=== PATIENT | male | born 1990 ===

== ENCOUNTER 2020-11-26 16:52 | Emergency (ER) | payer OTHER ==
[~2020-11-26] VITALS: Ht 182.9 cm; Wt 71.2 kg
[2020-11-26] MEDS ORDERED: ACETAMINOPHEN 500 MG TABLET ONE (17:07)
[2020-11-26] MEDS ORDERED: SODIUM CHLORIDE 0.9% 1,000ML IVBOLUS ONE (18:00)
[2020-11-26] MEDS ORDERED: ACETAMINOPHEN 500 MG TABLET PO ONE (18:00)
[2020-11-26] MEDS ORDERED: SODIUM CHLORIDE FLUSH 10ML SYR IVF ONE (18:00)
[2020-11-26 18:22] LABS: BASOPHILS % (AUTO) 0 % (0-1); EOSINOPHILS % (AUTO) 0 % (1-7); LYMPHOCYTES % (AUTO) 21 % (22-44); MEAN CORPUSCULAR HEMOGLOBIN 27.4 pg (27.5-34.5); MEAN CORPUSCULAR HGB CONC 33.4 g/dL (33.2-36.2); MEAN PLATELET VOLUME 7.2 fL (7.4-10.4); MONOCYTES % (AUTO) 11 % (2-9); NEUTROPHILS % (AUTO) 68 % (42-75); PLATELET COUNT 277 x10^3/uL (130-400); RED BLOOD COUNT 4.93 x10^6/uL (4.38-5.82); RED CELL DISTRIBUTION WIDTH 14.1 % (9.4-14.8)
[2020-11-26 18:31] LABS: ALBUMIN 2.5 g/dL (3.4-5.0); ANION GAP 5 mmol/L (5-15); CALCIUM 8.2 mg/dL (8.5-10.1); CHLORIDE 102 mmol/L (98-107)
[2020-11-26 18:34] LABS: ALANINE AMINOTRANSFERASE 33 U/L (12-78); ALKALINE PHOSPHATASE 64 U/L (45-117); BILIRUBIN,TOTAL 0.3 mg/dL (0.2-1.0); CREATININE 0.59 mg/dL (0.7-1.3); TOTAL PROTEIN 6.7 g/dL (6.4-8.2)
[2020-11-26] MEDS ORDERED: DEXAMETHASONE 4 MG/ML, 5ML IVPush ONE (21:30)
[2020-11-26] MEDS ORDERED: AZITHROMYCIN 500 MG in SODIUM CHLORIDE 0.9% 250 ML IVPB ONE (21:30)
[2020-11-26] MEDS ORDERED: CEFTRIAXONE 1,000 MG in DEXTROSE 5% 50 ML IVPB ONE (21:30)
[2020-11-26] MEDS ORDERED: DEXAMETHASONE 4 MG/ML, 1ML ONE (21:45)
--- NOTE | 2020-11-26 21:48 | NUR ---
FEVER IMPROVED/VSS (NO WOB), PIV PLACED, MEDICATED PER EMAR AFTER BLOOD CULTURES X2 PROVIDED WITH FOOD UPDATED ON ESTIMATED POC
--- NOTE | 2020-11-26 23:02 | NUR ---
ERP ASKED FOR D/C PAPER WORK
[2020-11-27 00:01] VITALS: BP 129/77
== END 2020-11-27 01:28 | disposition home or self-care (01) ==
LOC: ED 23:59
DX: U07.1 COVID-19 (principal); F15.20 Other stimulant dependence, uncomplicated; J15.9 Unspecified bacterial pneumonia; R05 Cough; R06.02 Shortness of breath; R50.9 Fever, unspecified; R00.0 Tachycardia, unspecified; Z72.9 Problem related to lifestyle, unspecified
CPT/HCPCS: 36415; 71045; 80053; 83605; 84145; 85025; 87040; 93005; 96365; 96367; 96375; 99285; J0456; J0696; J1100; J7030; J7050; U0003; U0005